=== PATIENT | male | born 1975 | race Caucasian/White ===

== ENCOUNTER 2021-07-30 19:47 | Emergency (ER) | payer OTHER ==
[~2021-07-30] VITALS: Ht 185.4 cm; Wt 106.6 kg
[2021-07-30 20:29] VITALS: BP_SYST 153
--- NOTE | 2021-07-30 22:00 | NUR ---
Patient to ER CHAIR for evaluation.
--- NOTE | 2021-07-30 22:04 | NUR ---
ER at bedside examining patient.
--- NOTE | 2021-07-30 22:07 | NUR ---
PATIENT COMPLAINING OF WATERY NON BLOODY DIARRHEA X 2 DAYS. PATIENT REPORTS MIKE IMODIUM WITH NO IMPROVEMENT. DENIES ANY PAIN AT THIS TIME.
[2021-07-30 22:38] LABS: BASOPHILS % (AUTO) 0.3 % (0.0-2.0); EOSINOPHILS # (AUTO) 0.3 K/uL (0.0-0.4); EOSINOPHILS % (AUTO) 4.7 % (0.0-4.0); HEMATOCRIT 43.9 % (36-54); HEMOGLOBIN 15.3 g/dL (14.0-18.0); LYMPHOCYTES # (AUTO) 1.1 K/uL (1.0-5.5); LYMPHOCYTES % (AUTO) 16.5 % (20.5-51.5); MEAN CORPUSCULAR HEMOGLOBIN 31 pg (27-31); MEAN CORPUSCULAR HGB CONC 35 % (32-36); MEAN CORPUSCULAR VOLUME 89 fL (79.0-98.0); MONOCYTES # (AUTO) 0.7 K/uL (0.0-1.0); MONOCYTES % (AUTO) 11.3 % (1.7-9.3); NEUTROPHILS # (AUTO) 4.3 K/uL (1.8-7.7); NEUTROPHILS % (AUTO) 67.2 % (40.0-70.0); PLATELET COUNT (AUTO) 172 K/uL (130-430); RED BLOOD CELL COUNT(AUTO) 4.92 MIL/uL (4.2-6.2); RED CELL DISTRIBUTION WIDTH 13.6 % (9.0-15.0); WHITE BLOOD COUNT (AUTO) 6.5 K/uL (4.8-10.8)
[2021-07-30] MEDS ORDERED: DICYCLOMINE HCL 20 MG/2 ML AMP IM ONE (22:45)
[2021-07-30 22:50] LABS: CALCIUM 9.2 mg/dL (8.4-11.0); CREATININE 1.5 mg/dL (0.55-1.30); POTASSIUM 4.2 mmol/L (3.5-5.1)
[2021-07-30 22:51] LABS: ALBUMIN 3.7 g/dL (3.4-4.8); TOTAL BILIRUBIN 1.4 mg/dL (0.0-1.0)
[2021-07-31] MEDS ORDERED: SULF1TAB48 PO (00:39)
[2021-07-31] MEDS ORDERED: DICY10CA13 PO (00:39)
--- NOTE | 2021-07-31 00:46 | NUR ---
ER DISCUSSING RESULTS WITH patient.
[2021-07-31 00:53] VITALS: BP_SYST 132
--- NOTE | 2021-07-31 00:53 | NUR ---
Patient given written and verbal discharge instructions and verbalizes understanding. ER MD discussed with patient the results and treatment provided. Patient in stable condition. ID arm band removed. Rx of BACTRIM AND BENTYL given. Patient educated on pain management and to follow up with PMD. Pain Scale 0/10 Opportunity for questions provided and answered. Medication side effect fact sheet provided.
== END 2021-07-31 00:53 | disposition home or self-care (01) ==
LOC: SED 19:47
DX: R19.7 Diarrhea, unspecified (principal); R10.84 Generalized abdominal pain; Z88.0 Allergy status to penicillin; Z79.899 Other long term (current) drug therapy
CPT/HCPCS: 36415; 76376; 80053; 85025; 99284